=== PATIENT | female | born 1985 ===

== ENCOUNTER 2023-12-07 12:05 | Emergency (ER) | payer SELFPAY ==
[2023-12-07 12:43] LABS: BILIRUBIN,URINE NEGATIVE (NEGATIVE); COLOR,URINE YELLOW; GLUCOSE,URINE NEGATIVE (NEGATIVE); KETONES,URINE NEGATIVE (NEGATIVE); LEUKOCYTE ESTERASE,URINE NEGATIVE (NEGATIVE); NITRITE,URINE NEGATIVE (NEGATIVE); OCCULT BLOOD,URINE NEGATIVE (NEGATIVE); PH,URINE 6.5 (5.0-8.0); PROTEIN,URINE NEGATIVE (NEGATIVE); UROBILINOGEN,URINE 0.2 EU/dL (<2.0)
[2023-12-07 12:44] LABS: APPEARANCE,URINE HAZY
[2023-12-07] MEDS: Fluconazole 150 MG Tab PO ONE (13:27)
== END 2023-12-07 13:29 | disposition home or self-care (01) ==
LOC: MW.ED 12:05
DX: N76.89 Other specified inflammation of vagina and vulva (principal); Z88.6 Allergy status to analgesic agent; Z88.5 Allergy status to narcotic agent
CPT/HCPCS: 81003; 81025; 99283; A9270

== ENCOUNTER 2024-05-18 08:58 | Emergency (ER) | payer SELFPAY ==
[2024-05-18] MEDS: Lidocaine/Epineph/Tetracaine 3 ML Syringe TOP ONE (09:20)
[2024-05-18] MEDS: traMADol 50 MG Tab PO ONE (09:20)
== END 2024-05-18 10:15 | disposition home or self-care (01) ==
LOC: MW.ED 08:58
DX: L02.31 Cutaneous abscess of buttock (principal); Z88.6 Allergy status to analgesic agent; Z88.8 Allergy status to other drugs, medicaments and biological substances; Z75.8 Other problems related to medical facilities and other health care
CPT/HCPCS: 10060; 99282; A9270; 99283